=== PATIENT | female | born 1960 | race American Indian/Alaskan Native ===

== ENCOUNTER 2017-05-08 11:47 | Emergency (ER) | payer MEDICAID ==
[2017-05-08 12:57] VITALS: BP 137/95
[2017-05-08 13:18] LABS: Basophils % (Auto) 0.5 % (0.0-1.8); Eosinophils % (Auto) 2.5 % (0.0-4.3); Hematocrit 40.9 % (30.3-42.9); Hemoglobin 13.3 gm/dl (10.1-14.3); Mean Corpuscular HGB Conc 33 % (30-34); Mean Corpuscular Hemoglobin 27 pg (28-32); Mean Corpuscular Volume 84 fl (79-97); Platelet Count 212 K/mm3 (140-440); Red Blood Count 4.85 M/mm3 (3.65-5.03); Red Cell Distribution Width 14.2 % (13.2-15.2); White Blood Count 6.2 K/mm3 (4.5-11.0)
[2017-05-08 13:32] LABS: Alanine Aminotransferase 18 units/L (7-56); Albumin/Globulin Ratio 1.5 %; Alkaline Phosphatase 85 units/L (35-129); Anion Gap 15 mmol/L; Blood Urea Nitrogen 20 mg/dL (7-17); Calcium 8.9 mg/dL (8.4-10.2); Carbon Dioxide 27 mmol/L (22-30); Chloride 101.3 mmol/L (98-107); Glucose 93 mg/dL (65-100); Lipase 18 units/L (13-60); Potassium 3.5 mmol/L (3.6-5.0); Sodium 140 mmol/L (137-145); Total Protein 6.6 g/dL (6.3-8.2)
[2017-05-08 15:08] LABS: Bilirubin,Urine NEG (Negative); Blood,Urine SM (Negative); Ketones,Urine NEG (Negative); Leukocyte Esterase,Urine NEG (Negative); Mucus,Urine FEW /HPF; Nitrite,Urine NEG (Negative); Protein,Urine <15 mg/dL mg/dL (Negative); Urobilinogen,Urine < 2.0 mg/dL (<2.0)
--- NOTE | 2017-05-15 10:28 | ED Elopement Review ---
ED Pt Elopement review - Results review Lab results: Laboratory Tests 05/08/17 05/08/17 05/08/17 12:58 12:58 13:00 WBC 6.2 RBC 4.85 Hgb 13.3 Hct 40.9 MCV 84 MCH 27 L MCHC 33 RDW 14.2 Plt Count 212 Lymph % (Auto) 36.2 H [place] % (Auto) 11.5 H Eos % (Auto) 2.5 Baso % (Auto) 0.5 Lymph # 2.2 [place] # 0.7 Eos # 0.2 Baso # 0.0 Seg Neutrophils % 49.3 Seg Neutrophils # 3.0 Sodium Potassium Chloride Carbon Dioxide Anion Gap BUN Creatinine Estimated GFR BUN/Creatinine Ratio Glucose Calcium Total Bilirubin AST ALT Alkaline Phosphatase Total Protein Albumin Albumin/Globulin Ratio Lipase Urine Color Yellow Urine Turbidity Clear Urine pH 6.0 Ur Specific [place] 1.015 Urine Protein <15 mg/dl Urine Glucose (UA) 50 Urine Ketones Neg Urine Blood Sm Urine Nitrite Neg Urine Bilirubin Neg Urine Urobilinogen < 2.0 Ur Leukocyte Esterase Neg Urine WBC (Auto) 1.0 Urine RBC (Auto) 3.0 U Epithel Cells (Auto) < 1.0 Urine Mucus Few Urine HCG, Qual Negative 05/08/17 13:00 WBC RBC Hgb Hct MCV MCH MCHC RDW Plt Count Lymph % (Auto) [place] % (Auto) Eos % (Auto) Baso % (Auto) Lymph # [place] # Eos # Baso # Seg Neutrophils % Seg Neutrophils # Sodium 140 Potassium 3.5 L Chloride 101.3 Carbon Dioxide 27 Anion Gap 15 BUN 20 H Creatinine 1.0 Estimated GFR > 60 BUN/Creatinine Ratio 20.00 Glucose 93 Calcium 8.9 Total Bilirubin 0.80 AST 18 ALT 18 Alkaline Phosphatase 85 Total Protein 6.6 Albumin 4.0 Albumin/Globulin Ratio 1.5 Lipase 18 Urine Color Urine Turbidity Urine pH Ur Specific [place] Urine Protein Urine Glucose (UA) Urine Ketones Urine Blood Urine Nitrite Urine Bilirubin Urine Urobilinogen Ur Leukocyte Esterase Urine WBC (Auto) Urine RBC (Auto) U Epithel Cells (Auto) Urine Mucus Urine HCG, Qual - Call Back decision Pt Call Back Decision: No action required
== END 2017-05-08 20:00 | disposition left against medical advice (07) ==
LOC: ED 11:47
DX: R10.9 Unspecified abdominal pain (principal); Z53.21 Procedure and treatment not carried out due to patient leaving prior to being seen by health care provider
CPT/HCPCS: 36415; 80053; 81001; 81025; 83690; 85025

== ENCOUNTER 2017-10-17 13:56 | Emergency (ER) | payer MEDICAID ==
[2017-10-17 14:38] VITALS: BP 184/105
[2017-10-17] MEDS ORDERED: DUONEB *Not for PRN Use IH ONE (15:22)
[2017-10-17 15:26] LABS: Anion Gap 20 mmol/L; BUN/Creatinine Ratio 16; Blood Urea Nitrogen 18 mg/dL (7-17); Calcium 9.3 mg/dL (8.4-10.2); Carbon Dioxide 24 mmol/L (22-30); Glucose 98 mg/dL (65-100); Potassium 4.4 mmol/L (3.6-5.0); Sodium 143 mmol/L (137-145)
[2017-10-17 15:27] LABS: Hematocrit 42.5 % (30.3-42.9); Hemoglobin 13.5 gm/dl (10.1-14.3); Mean Corpuscular HGB Conc 32 % (30-34); Mean Corpuscular Hemoglobin 27 pg (28-32); Mean Corpuscular Volume 84 fl (79-97); Platelet Count 208 K/mm3 (140-440); Red Blood Count 5.07 M/mm3 (3.65-5.03); Red Cell Distribution Width 14.6 % (13.2-15.2); White Blood Count 5.5 K/mm3 (4.5-11.0)
[2017-10-17 16:25] LABS: Basophils % (Manual) 0 % (0.0-1.8); Blastocytes % (Manual) 0 %; Diff Status Complete; Hypochromasia 1+; Ovalocytes Few; Platelet Estimate Consistent w Auto
== END 2017-10-17 19:40 | disposition left against medical advice (07) ==
LOC: ED 13:56
DX: R07.9 Chest pain, unspecified (principal); R06.09 Other forms of dyspnea; Z53.21 Procedure and treatment not carried out due to patient leaving prior to being seen by health care provider
CPT/HCPCS: 93005; 93010

== ENCOUNTER → 2017-12-01 | Emergency (ER) | payer MEDICAID | LOC: TRG 04:11 → ED 04:11 → TRG 04:19 → EDSTATUS 05:23 → TRG 05:30 → ED 05:30 → TRG 12-02 08:39 | DX: Z53.21 Procedure and treatment not carried out due to patient leaving prior to being seen by health care provider (principal) ==

== ENCOUNTER 2021-10-20 15:27 | Observation (INO) | payer SELFPAY ==
[2021-10-20 16:43] LABS: Basophils % (Auto) 0.5 % (0.0-1.8); Eosinophils # (Auto) 0.2 K/mm3 (0.0-0.4); Eosinophils % (Auto) 2.4 % (0.0-4.3); Hematocrit 42.5 % (30.3-42.9); Hemoglobin 13.5 gm/dl (10.1-14.3); Lymphocytes # (Auto) 1.8 K/mm3 (1.2-5.4); Lymphocytes % (Auto) 26.3 % (13.4-35.0); Mean Corpuscular HGB Conc 32 % (30-34); Mean Corpuscular Volume 82 fl (79-97); Monocytes # (Auto) 0.5 K/mm3 (0.0-0.8); Monocytes % (Auto) 7.6 % (0.0-7.3); Platelet Count 228 K/mm3 (140-440); Red Blood Count 5.16 M/mm3 (3.65-5.03)
[2021-10-20 17:02] LABS: INR 0.88 (0.87-1.13)
[2021-10-20 17:03] LABS: Partial Thromboplastin Time 28.7 Sec. (24.2-36.6); Thrombin Time 21.9 Sec. (15.1-19.6)
[2021-10-20 17:07] LABS: Alanine Aminotransferase 12 units/L (7-56); Albumin 4.2 g/dL (3.9-5); BUN/Creatinine Ratio 9; Blood Urea Nitrogen 10 mg/dL (7-17); Calcium 9.1 mg/dL (8.4-10.2); Hemolysis Index 8
--- NOTE | 2021-10-20 17:07 | Cat Scan Report ---
CT BRAIN: 10/20/2021 INDICATION / CLINICAL INFORMATION: Stroke symptoms. COMPARISON: None available. FINDINGS: BRAIN/INTRACRANIAL STRUCTURES: Unenhanced CT images of the brain demonstrate some patchy areas of sub cortical hypoattenuation bilaterally. There is 1.4 cm area of hypodensity in the left centrum semiova le. Some patchy areas of hypodensity are also noted in the right frontal subcortical white matter and in the anterior left putamen. These findings may be due to 2 ischemic changes, which are considered to be of indeterminate age. Acute or recent subcortical ischemic changes on the left side cannot be e xcluded. Depending on details of the clinical circumstances, further evaluation with MRI may be helpful for de termining acuity. There is no evidence of hemorrhage. There are no abnormal extra-axial fluid collections. EXTRACRANIAL STRUCTURES: Unremarkable. IMPRESSION: Focal areas of subcortical hypodensity as described above. No evidence of hemorrhage. All CT scans at this location are performed using dose reduction to ALARA by means of automated expos ure control. Signer Name: Hernandez Hilton MD Signed: 10/20/2021 5:03 PM Workstation Name: [id number]
--- NOTE | 2021-10-20 17:22 | Emergency Department Report ---
ED Neuro Deficit HPI - General Chief Complaint: Neuro Symptoms/Deficit Stated Complaint: NOT FEELING WELL, LOSS OF ENERGY Time Seen by Provider: 10/20/21 15:59 Source: patient Mode of arrival: Wheelchair Limitations: No Limitations - History of Present Illness Initial Comments: Chief complaint: I think I had a stroke. HPI: This is a 61-year-old female with history of hypertension noncompliant medication presents with facial droop, slurred speech, difficulty walking. Onset on Wednesday. Daughter noticed facial droop. Patient has slurred speech and difficulty forming sentences. Also has had left foot ankle numbness with unsteady gait. 3 days ago time of onset Wednesday. -: days(s) (3 days ago) Location: speech, right face Presenting Symptoms: Present: Unable to Speak Clearly History of same: No Place: home Severity: mild Improves With: none Worsens With: none On Anticoagulants: No Context: other (3 days ago) Associated Symptoms: denies: chest pain, cough, diaphoresis, fever/chills, headaches, loss of appetite, malise, vertigo, shortness of breath, syncope Treatments Prior to Arrival: none - Related Data Home Medications: Previous Rx's Medication Instructions Recorded Last Taken Type ALBUTEROL NEB's [Proventil 0.083% 2.5 mg IH ONCE #1 ml 03/17/14 Unknown Rx NEBS] Allergies/Adverse Reactions: Allergies Allergy/AdvReac Type Severity Reaction Status Date / Time No Known Allergies Allergy Verified 10/20/21 15:37 ED Review of Systems ROS: Stated complaint: NOT FEELING WELL, LOSS OF ENERGY Other details as noted in HPI Comment: All other systems reviewed and negative Constitutional: denies: chills, fever, malaise Respiratory: denies: cough, shortness of breath Gastrointestinal: denies: abdominal pain, nausea, vomiting Neurological: numbness, abnormal gait. denies: headache, weakness ED Past Medical Hx - Past Medical History Previous Medical History?: Yes Hx Hypertension: Yes Additional medical history: ALLERGIES - Surgical History Past Surgical History?: Yes Additional Surgical History: TONSIL SURGERY AT AGE 12 - Social History Smoking Status: Current Every Day Smoker Substance Use Type: None - Medications Home Medications: Home Medications Medication Instructions Recorded Confirmed Last Taken Type ALBUTEROL NEB's [Proventil 0.083% 2.5 mg IH ONCE #1 ml 03/17/14 Unknown Rx NEBS] ED Neuro Physical Exam - General Limitations: No Limitations General appearance: alert, in no apparent distress Suspected Stroke: Yes - Head Head exam: Present: atraumatic, normocephalic - Eye Eye exam: Present: normal appearance - ENT ENT exam: Present: mucous membranes moist - Neck Neck exam: Present: normal inspection, full ROM - Respiratory Respiratory exam: Present: normal lung sounds bilaterally. Absent: respiratory distress, wheezes, rales, rhonchi - Cardiovascular Cardiovascular Exam: Present: regular rate, normal rhythm, normal heart sounds. Absent: systolic murmur, diastolic murmur, rubs, gallop - GI/Abdominal GI/Abdominal exam: Present: soft, normal bowel sounds. Absent: distended, tenderness, guarding, rebound - Extremities Exam Extremities exam: Present: normal inspection - Neurological Exam Neurological exam: Present: alert, oriented X3 - NIHSS Assessment Interval: Baseline 1a. Level of Consciousness: alert/keenly responsive 1b. LOC Questions: answers both correctly 1c. LOC Commands: performs tasks correctly 2. Best Gaze: normal 3. Visual: no visual loss 4. Facial Palsy: minor paralysis (Right-sided lower facial paralysis) 5b. Motor Arm Right: no drift 5a. Motor Arm Left: no drift 6a. Motor Leg Left: no drift 6b. Motor Leg Right: no drift 7. Limb Ataxia: absent 8. Sensory: normal 9. Best Language: mild/moderate aphasia 10. Dysarthria: mild/moderate dysarthria 11. Extinction/Inattention: no abnormality Total Score: 3 Stroke Severity: Minor Stroke - Psychiatric Psychiatric exam: Present: normal affect, normal mood - Skin Skin exam: Present: warm, dry, intact, normal color. Absent: rash ED Course Vital Signs 10/20/21 15:46 Temperature 98.5 F Pulse Rate 105 H Respiratory 18 Rate Blood Pressure 206/115 O2 Sat by Pulse 96 Oximetry - Lab Data Result diagrams: 10/20/21 16:24 10/20/21 16:24 Lab Results 10/20/21 10/20/21 10/20/21 Range/Units 15:41 16:24 16:24 WBC 7.0 (4.5-11.0) K/mm3 RBC 5.16 H (3.65-5.03) M/mm3 Hgb 13.5 (10.1-14.3) gm/dl Hct 42.5 (30.3-42.9) % MCV 82 (79-97) fl MCH 26 L (28-32) pg MCHC 32 (30-34) % RDW 15.0 (13.2-15.2) % Plt Count 228 (140-440) K/mm3 Lymph % (Auto) 26.3 (13.4-35.0) % [place] % (Auto) 7.6 H (0.0-7.3) % Eos % (Auto) 2.4 (0.0-4.3) % Baso % (Auto) 0.5 (0.0-1.8) % Lymph # (Auto) 1.8 (1.2-5.4) K/mm3 [place] # (Auto) 0.5 (0.0-0.8) K/mm3 Eos # (Auto) 0.2 (0.0-0.4) K/mm3 Baso # (Auto) 0.0 (0.0-0.1) K/mm3 Seg Neutrophils % 63.2 (40.0-70.0) % Seg Neutrophils # 4.4 (1.8-7.7) K/mm3 PT 12.9 (12.2-14.9) Sec. INR 0.88 (0.87-1.13) APTT 28.7 (24.2-36.6) Sec. Thrombin Time 21.9 H (15.1-19.6) Sec. Sodium (137-145) mmol/L Potassium (3.6-5.0) mmol/L Chloride (98-107) mmol/L Carbon Dioxide (22-30) mmol/L Anion Gap mmol/L BUN (7-17) mg/dL Creatinine (0.6-1.2) mg/dL Estimated GFR ml/min BUN/Creatinine Ratio % Glucose (65-100) mg/dL POC Glucose 110 H (70-105) mg/dL Calcium (8.4-10.2) mg/dL Total Bilirubin (0.1-1.2) mg/dL AST (5-40) units/L ALT (7-56) units/L Alkaline Phosphatase (35-129) units/L Troponin T (0.00-0.029) ng/mL NT-Pro-B Natriuret Pep (0-900) pg/mL Total Protein (6.3-8.2) g/dL Albumin (3.9-5) g/dL Albumin/Globulin Ratio % // Range/Units 16:24 WBC (4.5-11.0) K/mm3 RBC (3.65-5.03) M/mm3 Hgb (10.1-14.3) gm/dl Hct (30.3-42.9) % MCV (79-97) fl MCH (28-32) pg MCHC (30-34) % RDW (13.2-15.2) % Plt Count (140-440) K/mm3 Lymph % (Auto) (13.4-35.0) % [place] % (Auto) (0.0-7.3) % Eos % (Auto) (0.0-4.3) % Baso % (Auto) (0.0-1.8) % Lymph # (Auto) (1.2-5.4) K/mm3 [place] # (Auto) (0.0-0.8) K/mm3 Eos # (Auto) (0.0-0.4) K/mm3 Baso # (Auto) (0.0-0.1) K/mm3 Seg Neutrophils % (40.0-70.0) % Seg Neutrophils # (1.8-7.7) K/mm3 PT (12.2-14.9) Sec. INR (0.87-1.13) APTT (24.2-36.6) Sec. Thrombin Time (15.1-19.6) Sec. Sodium 144 (137-145) mmol/L Potassium 3.9 (3.6-5.0) mmol/L Chloride 107.7 H (98-107) mmol/L Carbon Dioxide 22 (22-30) mmol/L Anion Gap 18 mmol/L BUN 10 (7-17) mg/dL Creatinine 1.1 (0.6-1.2) mg/dL Estimated GFR > 60 ml/min BUN/Creatinine Ratio 9 % Glucose 110 H (65-100) mg/dL POC Glucose (70-105) mg/dL Calcium 9.1 (8.4-10.2) mg/dL Total Bilirubin 0.60 (0.1-1.2) mg/dL AST 15 (5-40) units/L ALT 12 (7-56) units/L Alkaline Phosphatase 104 (35-129) units/L Troponin T < 0.010 (0.00-0.029) ng/mL NT-Pro-B Natriuret Pep 124.7 (0-900) pg/mL Total Protein 7.3 (6.3-8.2) g/dL Albumin 4.2 (3.9-5) g/dL Albumin/Globulin Ratio 1.4 % - Radiology Data Radiology results: report reviewed Patient Name: SHERLY DE LA FUENTE Gender: Female Date of : 1960 Referring Provider: BO WADE Organization: [facility] Accession Number: [id number] Requested Date: October 20, 2021 15:59 Report Status: Final Requested Procedure: 1 Procedure Description: CT head/brain wo con Modality: CT Findings Reporting MD: Hernandez Hilton Dictation Time: October 20, 2021 16:03 Senior Software Engineer: Not available Bench Chemist Date: CT BRAIN: 10/20/2021 INDICATION / CLINICAL INFORMATION: Stroke symptoms. COMPARISON: None available. FINDINGS: BRAIN/INTRACRANIAL STRUCTURES: Unenhanced CT images of the brain demonstrate some patchy areas of subcortical hypoattenuation bilaterally. There is 1.4 cm area of hypodensity in the left centrum semiovale. Some patchy areas of hypodensity are also noted in the right frontal subcortical white matter and in the anterior left putamen. These findings may be due to 2 ischemic changes, which are considered to be of indeterminate age. Acute or recent subcortical ischemic changes on the left side cannot be excluded. Depending on details of the clinical circumstances, further evaluation with MRI may be helpful for determining acuity. There is no evidence of hemorrhage. There are no abnormal extra-axial fluid collections. EXTRACRANIAL STRUCTURES: Unremarkable. IMPRESSION: Focal areas of subcortical hypodensity as described above. No evidence of hemorrhage. All CT scans at this location are performed using dose reduction to ALARA by means of automated exposure control. Signer Name: Hernandez Hilton MD Signed: 10/20/2021 4:03 PM Workstation Name: [id number] - Medical Decision Making Acute CVA, time of onset approximately 72 hours ago. Patient given aspirin. CT head revealed Focal areas of subcortical hypodensity Admitted to hospital service. Critical care attestation.: If time is entered above; I have spent that time in minutes in the direct care of this critically ill patient, excluding procedure time. ED Disposition Clinical Impression: Acute CVA (cerebrovascular accident) Disposition: ADMITTED INPATIENT Is pt being admited?: Yes Does the pt Need Aspirin: No Condition: Stable
[2021-10-20] MEDS ORDERED: PROMETHAZINE 25 MG RECT SUPP PR PRN (17:25)
[2021-10-20] MEDS ORDERED: ASPIRIN 81 MG TAB CHEW PO ONE (17:25)
[2021-10-20] MEDS ORDERED: ALBUTEROL 2.5 MG/3 ML NEBU IH PRN (17:25)
[2021-10-20] MEDS ORDERED: HYDROmorphone 1 MG/1 ML INJ IV PRN (17:25)
[2021-10-20] MEDS ORDERED: oxyCODONE /ACETAMINOPHEN 5-325MG TAB PO PRN (17:25)
[2021-10-20] MEDS ORDERED: MAGNESIUM HYDROXIDE (MOM) ORAL LIQD UDC PO PRN (17:25)
[2021-10-20] MEDS ORDERED: ONDANSETRON 4 MG/2 ML INJ IV PRN (17:25)
[2021-10-20] MEDS ORDERED: METOCLOPRAMIDE 10 MG TAB PO PRN (17:25)
[2021-10-20] MEDS ORDERED: ACETAMINOPHEN 325 MG TAB PO PRN (17:25)
--- NOTE | 2021-10-20 17:25 | History and Physical Report ---
History of Present Illness Chief complaint: I think you had a stroke History of present illness: 61 YO Female with HTN, Seasonal Allergies, Obesity Hypoventilation Syndrome, Nicotine Dependence presents to ED for evaluation. Patient reports "I think I had a stroke". Patient states that she experienced sudden onset facial droop and slurred speech, leg weakness with difficulty with ambulation on Wednesday. Patient did not seek medical attention at that time. Patient reports persistent symptoms over the same timeframe without resolution. Patient transported to [facility] via private vehicle for further care and evaluation of the aforementioned symptoms. The patient was seen and evaluated in the emergency department. All lab and imaging studies reviewed. The patient was found to have accelerated hypertension, and a neurologic deficit upon arrival with clinical symptoms consistent with CVA. A code stroke was called. Teleneurology consulted. Patient deemed outside therapeutic window for TPA. Patient admitted to medical floor and initiated on CVA protocol with concomitant antiplatelet therapy. Patient denies fever, chills, chest pain, palpitation, productive cough, skin rash, recent contact, known exposure to COVID-19. No prior admission for review. No medication listed at time of admission reconciliation. Advanced care planning conducted in ED. Past History Past Medical History: hypertension Past Surgical History: tonsillectomy Social history: single, smoking Family history: diabetes, hypertension Medications and Allergies Allergies Allergy/AdvReac Type Severity Reaction Status Date / Time No Known Allergies Allergy Verified 10/20/21 15:37 Home Medications Medication Instructions Recorded Confirmed Last Taken Type ALBUTEROL NEB's [Proventil 0.083% 2.5 mg IH ONCE #1 ml 03/17/14 Unknown Rx NEBS] Review of Systems Constitutional: no weight loss, no weight gain, no fever, no chills Ears, nose, mouth and throat: no ear pain, no tinnitis, no nose pain, no nasal discharge Breasts: no change in shape, no swelling Cardiovascular: no chest pain, no orthopnea, no palpitations, no rapid/irregular heart beat, no edema, no syncope Respiratory: no cough, no cough with sputum, no shortness of breath Gastrointestinal: no abdominal pain, no nausea, no vomiting, no constipation, no change in bowel habits, no hematemesis Genitourinary Female: no pelvic pain, no flank pain, no dysuria, no urinary frequency, no urgency Rectal: no pain, no incontinence, no bleeding Musculoskeletal: no neck pain, no shooting arm pain, no arm numbness/tingling, no leg numbness/tingling Integumentary: no rash, no pruritis, no redness, no sores Neurological: weakness, ataxia, change in speech, gait dysfunction, motor disturbance, no memory loss Psychiatric: no anxiety, no sleep disturbances, no insomnia, no change in appetite, no disorientation Endocrine: no cold intolerance, no polyphagia, no excessive thirst Hematologic/Lymphatic: no easy bruising, no lymphadenopathy Allergic/Immunologic: no urticaria, no allergic rhinitis, no wheezing, no persistent infections, no anaphylaxis Exam - Constitutional Vitals: Temp Pulse Resp BP Pulse Ox 98.5 F 105 H 18 206/115 96 10/20/21 15:46 10/20/21 15:46 10/20/21 15:46 10/20/21 15:46 10/20/21 15:46 General appearance: Present: mild distress, obese - EENT Eyes: Present: PERRL ENT: hearing intact, clear oral mucosa - Neck Neck: Present: supple, normal ROM - Respiratory Respiratory effort: normal Respiratory: bilateral: CTA - Cardiovascular Heart Sounds: Present: S1 & S2. Absent: rub, click - Extremities Extremities: pulses symmetrical, No edema Peripheral Pulses: within normal limits - Abdominal General gastrointestinal: Present: soft, non-tender, non-distended, normal bowel sounds Female genitourinary: Present: normal - Integumentary Integumentary: Present: clear, warm, dry - Musculoskeletal Musculoskeletal: generalized weakness - Psychiatric Psychiatric: appropriate mood/affect, intact judgment & insight - Neurologic Neurologic: CNII-XII intact, focal deficits, moves all extremities, no gait normal HEART Score - HEART Score Troponin: Troponin T < 0.010 ng/mL (0.00-0.029) 10/20/21 16:24 Results - Labs CBC & Chem 7: 10/20/21 16:24 10/20/21 16:24 Labs: Abnormal lab results 10/20/21 10/20/21 10/20/21 Range/Units 15:41 16:24 16:24 RBC 5.16 H (3.65-5.03) M/mm3 MCH 26 L (28-32) pg [place] % (Auto) 7.6 H (0.0-7.3) % Thrombin Time 21.9 H (15.1-19.6) Sec. Chloride (98-107) mmol/L Glucose (65-100) mg/dL POC Glucose 110 H (70-105) mg/dL 10/20/21 Range/Units 16:24 RBC (3.65-5.03) M/mm3 MCH (28-32) pg [place] % (Auto) (0.0-7.3) % Thrombin Time (15.1-19.6) Sec. Chloride 107.7 H (98-107) mmol/L Glucose 110 H (65-100) mg/dL POC Glucose (70-105) mg/dL Assessment and Plan - Patient Problems (1) Acute CVA (cerebrovascular accident) Status: Acute Plan to address problem: CVA protocol: CT head, neuro check, seizure precaution, aspiration precautions, physical therapy consulted, Occupational Therapy consulted, speech therapy consulted, dual antiplatelet therapy, lipid panel, statin therapy, echocardiogram, carotid Doppler. (2) Accelerated hypertension Status: Acute Plan to address problem: Monitor blood pressure every shift, continue medical management, permissive hypertension overnight. (3) Obesity hypoventilation syndrome Status: Acute Plan to address problem: Balanced diet, increase physical activity at discharge, outpatient pulmonary follow-up for sleep study. (4) DVT prophylaxis Status: Acute Plan to address problem: SCD to bilateral lower extremities while in bed (5) Advance care planning Status: Acute Plan to address problem: Disease education conducted, care plan discussed, diagnoses discussed, patient is full code, patient acknowledges understanding and agreement with care plan, +30 minutes.
[2021-10-20] MEDS ORDERED: CLOPIDOGREL 75 MG TAB PO SCH (17:31)
[2021-10-20 19:04] VITALS: BP 131/72
[2021-10-21] MEDS ORDERED: ASPIRIN 325 MG TAB PO SCH (10:00)
== END 2021-10-20 19:03 | disposition home or self-care (01) ==
LOC: ED 15:27 → 3A 17:27
PROVIDERS: ADMIT Internal Medicine; ATTEND Internal Medicine
DX: I63.9 Cerebral infarction, unspecified (principal); I10 Essential (primary) hypertension; E66.2 Morbid (severe) obesity with alveolar hypoventilation; F17.210 Nicotine dependence, cigarettes, uncomplicated; R29.703 NIHSS score 3; Z68.32 Body mass index [BMI] 32.0-32.9, adult; Z90.49 Acquired absence of other specified parts of digestive tract; Z79.899 Other long term (current) drug therapy; Z98.890 Other specified postprocedural states
CPT/HCPCS: 36415; 70450; 80053; 82962; 83880; 84484; 85025; 85610; 85670; 85730; 99284; G0378; G0379